=== PATIENT | female | born 1940 | race Caucasian/White ===

== ENCOUNTER 2020-11-22 01:59 | Inpatient (IN) | payer MEDICARE, OTHER ==
[~2020-11-22] VITALS: Ht 160 cm; Wt 78.0 kg
[2020-11-22] MEDS ORDERED: ELIQUIS5 MG PO (02:33)
[2020-11-22] MEDS ORDERED: ATOR20 PO (02:34)
[2020-11-22] MEDS ORDERED: BENZ100A PO (02:34)
[2020-11-22] MEDS ORDERED: Voltaren100 GM TOP (02:41)
[2020-11-22] MEDS ORDERED: DOCU100 PO (02:42)
[2020-11-22] MEDS ORDERED: FERROUS GLUCON324 M2 PO (02:43)
[2020-11-22] MEDS ORDERED: GABA300 PO (02:44)
[2020-11-22] MEDS ORDERED: FOLI1 PO (02:44)
[2020-11-22] MEDS ORDERED: LOSA25 PO (02:49)
[2020-11-22] MEDS ORDERED: NITR.4SL SL (02:49)
[2020-11-22] MEDS ORDERED: ONDA4ODT MM (02:50)
[2020-11-22 03:38] LABS: PCO2 Arterial 60.3 mmHg (35-45); PO2 Arterial 78.2 mmHg (80-100); pH Blood Arterial 7.31 (7.35-7.45)
[2020-11-22 05:36] LABS: Hematocrit 25.5 % (33.0-51.0); Hemoglobin 7.3 g/dL (11.5-16.0); Mean Corpuscular HGB 25.3 pg (26.0-34.0); Mean Corpuscular HGB Conc 28.6 g/dL (31.5-36.5); Mean Corpuscular Volume 88 fL (80-100); Mean Platelet Volume 9.2 fL (9.1-12.4); Platelet Count 483 K/mm3 (150-400); RDW Coefficient Variation 17.5 % (11.7-14.2); RDW Standard Deviation 56.8 fL (35.1-46.3); Red Blood Cell Count 2.89 M/mm3 (3.80-5.20); White Blood Cell Count 12.57 K/mm3 (4.00-11.30)
[2020-11-22 05:55] LABS: Bun/Creatinine Ratio 6.6 (12.0-20.0); Calcium, Blood 8.2 mg/dL (8.5-10.1); Creatinine, Blood 3.18 mg/dL (0.40-1.00); Potassium, Blood 4.3 mmol/L (3.5-5.5)
--- NOTE | 2020-11-22 06:01 | NUR ---
ADMIT NOTE THE PT ARRIVED TO PCU FROM ED VIA ED STRETCHER AT APPROX 0430. THE PT WAS SLID FROM ED STRETCHER TO PCU BED BY 4 STAFF. PT NOT ALERT, SOMULENT. RESPONDS TO STERNAL RUB WITH MOANING, WIGGLES TOES OCCASIONALLY. SP02>90% ON BIPAP. RT IN ROOM TO ADJUST SETTINGS. TELEMETRY READS SR, HR 60'S. PT HAS DIALYSIS PORT ON RIGHT UPPER CHEST WALL. LEFT ARM FISTULA, BP ON R ARM ONLY. SCATTERED BRUISING T/O. ABX INFUSING PER EMAR. CALL LIGHT IN REACH.
--- NOTE | 2020-11-22 08:58 | NUR ---
UPDATE CALLED IN TO ROOM FOR PT COMPLAINT OF CHEST PAIN THAT FELT LIKE TIGHTNESS IN THE CENTER OF CHEST. PT REQUESTING NITRO. EKG RECRORDED. SEE VITAL SIGNS. PT REPORTS PAIN 7/10. ONE NITRO GIVEN AND PT RATES CHEST PAIN AT 4/10 AFTER 3 MINUTES. SECOND NITRO GIVEN AND PT STATES PAIN IS NOW 2/10. PT REPORTS THE TIGHTNESS IN HER CHEST IS GONE. PT BREATHING EVEN AND UNLABORED AT THIS TIME. PLAN FOR DIALYSIS THIS AM.
--- NOTE | 2020-11-22 09:15 | NUR ---
DR. CRESPO UPDATED ON PT CONDITION AND NEW ORDERS PROVIDED.
--- NOTE | 2020-11-22 12:23 | NUR ---
UPDATE PT COMPLAINS OF TIGHTNESS IN THE CHEST /. ONE NITRO GIVEN AND MINUTES AFTER PT REPORTS CHEST PAIN NOW /. VS STABLE SEE CHART. WILL CONTINUE TO MONITOR CLOSELY.
--- NOTE | 2020-11-22 13:08 | NUR ---
UPDATE PT COMPLAINS OF CHEST PAIN AT 1259 7/10. BP TAKEN, ONE NITRO GIVEN. 3 MIN LATER PATIENT REPORTED RELIEF RATING PAIN 2/10. AT 1308 PT REPORTS NO PAIN. VITAL SIGNS STABLE. WILL CONTINUE TO MONITOR.
--- NOTE | 2020-11-22 13:50 | NUR ---
UPDATE PT COMPLAINS OF 6/[address] CHEST PAIN[address] BP LOW. [address] CRESPO NOTIFIED AND WAITING FOR NEW ORDERS.
--- NOTE | 2020-11-22 15:29 | NUR ---
Echocardiogram completed.
--- NOTE | 2020-11-22 19:12 | NUR ---
SHIFT SUMMARY: PATIENT IS ALERT AND ORIENTED. CAME OFF BIPAP THIS AM AND HAS BEEN ON 3L O2 VIA NASAL CANNULA SATING 93-94%. ON TELE, SHOWING SINUS RHYTHM WITH HR 80-90'S. VITAL SIGNS STABLE WITH SOME ELEVATED BLOOD PRESSURES. DIALYSIS THIS AM. SEE PREVIOUS NOTES FOR UPDATES ON CHEST PAIN. SMALL BUSINESS DIRECTOR TO SEE PATIENT TODAY WITH CHANGES IN MEDS SEE ORDERS/EMAR. PATIENT RESTING IN BED COMFORTABLY WITH NO COMPLAINTS OF PAIN. LAST EPISODE OF CHEST PAIN BEGAN AROUND 1400, NEW ORDERS WHERE PLACED AND CHEST PAIN RESOLVED. WILL CONTINUE TO MONITOR AND REPORT OFF.
[2020-11-23 04:37] LABS: Hematocrit 25.1 % (33.0-51.0); Hemoglobin 7.2 g/dL (11.5-16.0); Mean Corpuscular HGB 25.2 pg (26.0-34.0); Mean Corpuscular HGB Conc 28.7 g/dL (31.5-36.5); Mean Corpuscular Volume 88 fL (80-100); Mean Platelet Volume 9.7 fL (9.1-12.4); Platelet Count 529 K/mm3 (150-400); RDW Coefficient Variation 17.7 % (11.7-14.2); RDW Standard Deviation 56.5 fL (35.1-46.3); Red Blood Cell Count 2.86 M/mm3 (3.80-5.20); White Blood Cell Count 11.55 K/mm3 (4.00-11.30)
[2020-11-23 04:53] LABS: International Normalized Ratio 1.1; Prothrombin Time Results 11.7 Sec (9.7-11.5)
[2020-11-23 04:54] LABS: Anion Gap 6 mmol/L (6-16); Blood Urea Nitrogen 23 mg/dL (8-24); Bun/Creatinine Ratio 7.1 (12.0-20.0); CO2, Blood 34 mmol/L (21-32); Calcium, Blood 8.6 mg/dL (8.5-10.1); Chloride, Blood 100 mmol/L (98-108); Creatinine, Blood 3.26 mg/dL (0.40-1.00); Glomerular Filtration Rate 15 (60-); Glucose, Blood 85 mg/dL (70-99); Magnesium, Blood 2.1 mg/dL (1.6-2.4); Phosphorus, Blood 3.2 mg/dL (2.5-4.9); Potassium, Blood 3.4 mmol/L (3.5-5.5); Sodium, Blood 140 mmol/L (136-145)
[2020-11-23 05:12] LABS: PCO2 Arterial 52.8 mmHg (35-45); PO2 Arterial 69.6 mmHg (80-100); pH Blood Arterial 7.43 (7.35-7.45)
--- NOTE | 2020-11-23 05:43 | NUR ---
SHIFT SUMMARY NO ACUTE CHANGES THIS SHIFT. PT A&OX4. SP02>92% ON 3L NC. PT DID WEAR CPAP WHILE SLEEPING. TELEMETRY READ SR, HR 80'S. PT DENIED CP/PRESSURE T/O SHIFT. PT UP TO BSC X2 THIS SHIFT. EKG DONE THIS AM, SEE STRIP IN CHART. PT NPO SINCE MIDNIGHT FOR POSSIBLE PROCEDURE THIS MORNING. CALL LIGHT IN REACH. WILL GIVE REPORT TO ONCOMING SHIFT.
--- NOTE | 2020-11-23 06:30 | NUR ---
PT UPDATE MD DURANT IN PT'S ROOM THIS MORNING. MD DURANT WITH ORDERS FOR DIALYSIS TODAY FOR PT WELL 10MEQ PO POTASSIUM.
--- NOTE | 2020-11-23 09:29 | NUR ---
CALLED AND VERIFIED WITH DR DENTON THIS MORNING ABOUT POSS ANGIO TODAY, PER DR DENTON NO ANGIO PROCEDURE TODAY. HEPARIN GTT STARTED AT 09:15AM. DIALYSIS SCHEDULED BEFORE NOON. WILL MEDICALLY MANAGED AT THIS POINT. PT IN BED RESTING DENIES ANY CHEST PAIN/PRESURE. ATTEMPTING TO GET 2ND PERIPHERAL IV LINE FOR IV ABO. VITALS STABLE. PT CONTINUES ON 2L OF SATS ABOVE 92%. AFEBRILE. WILL MONITOR PT FOR ANY ACUTE CHANGE.
--- NOTE | 2020-11-23 13:15 | NUR ---
UPDATE PT RECIEVEING DIALYSIS, TELE SHOWING A BRIEF PERIOD OF SINUS SOLOMON DROPPING INTO THE 40'S. PATIENT NOW SINUS RHYTHM IN THE 70'S. RESTING COMFORTABLY WITH CALL LIGHT IN REACH. WILL CONTINUE TO MONITOR.
--- NOTE | 2020-11-23 18:29 | NUR ---
SHIFT SUMMARY: PT IS ALERT AND ORIENTED X4, IN GOOD SPIRITS AND COOPERATING WITH ALL CARES. DIALYSIS TODAY IN ROOM. VITAL SIGNS STABLE. ON 3 L OF O2 VIA NASAL CANNULA, SATING ABOVE 94%. NO COMPLAINTS OF CHEST PAIN OR SHORTNESS OF BREATH. ON TELE SHOWING SINUS RHYTHM WITH 1ST DEGREE BLOCK. HR IN THE 80-90'S. IV ROCHEPIN AND HEPARIN INFUSED. UP TO BEDSIDE COMMODE WITH 1 PERSON ASSIST. ON THE PHONE WITH FAMILY THROUGHOUT THE DAY. STATUS CHANGE TO MEDICAL WITH TELE. REPOSITIONING NEEDED, PT REFUSED PILLOWS TO FLOAT HIPS. NO ACUTE CHANGES. PT REQUESTED - WHEN SHE DOES GET DISCHARGED THAT HER SON BE NOTIFIED IN ADVANCE THEY LIVE IN [place]. WILL CONTINUE TO MONITOR AND REPORT OFF.
[2020-11-24 06:15] LABS: Hematocrit 27.1 % (33.0-51.0); Hemoglobin 7.8 g/dL (11.5-16.0)
[2020-11-24 06:31] LABS: Albumin, Blood 2.1 g/dL (3.4-5.0); Anion Gap 5 mmol/L (6-16); Blood Urea Nitrogen 21 mg/dL (8-24); Bun/Creatinine Ratio 7.3 (12.0-20.0); CO2, Blood 32 mmol/L (21-32); Calcium, Blood 8.6 mg/dL (8.5-10.1); Chloride, Blood 104 mmol/L (98-108); Creatinine, Blood 2.89 mg/dL (0.40-1.00); Glomerular Filtration Rate 17 (60-); Glucose, Blood 94 mg/dL (70-99); Phosphorus, Blood 2.7 mg/dL (2.5-4.9); Sodium, Blood 141 mmol/L (136-145)
--- NOTE | 2020-11-24 07:35 | NUR ---
ASSUMED CARE: PT RESTING QUIETLY, WATCHING TV AT THIS TIME. HEPARIN GTT VERIFIED WITH NIGHT RN. NO ACUTE NEEDS OR CONCERNS. NSR ON TELE
--- NOTE | 2020-11-24 07:44 | NUR ---
SHIFT SUMMARY PATIENT PLEASENT AND COOPERATIVE THROUGHOUT THE NIGHT. PATIENT APPEARED TO SLEEP WELL ON AND OFF THROUGHOUT THE NIGHT. PATIENT USED THE BIPAP WHEN ASLEEP. PATIENT ON 3L O2 WHEN AWAKE. PATIENT REPORTED FEELING MORE SHORT OF BREATH THIS MORNING AND REQUESTED A DOSE OF IV DIURETICS. DR DURANT NOTIFIED OF PATIENT'S REQUEST WHEN HE CAME BY AT APPROX 0600. DR DURANT STATED THAT HE THINKS GETTING DIALYSIS TODAY WOULD BE BEST FOR PATIENT'S SHORTNESS OF BREATH. PATIENT CURRENTLY SITTING UP IN BED WATCHING TV, RESPIRATIONS EVEN AND UNLABORED AT THIS TIME. REPORT GIVEN TO ONCOMING RN.
[2020-11-24] MEDS ORDERED: ASPI81CH PO (12:03)
[2020-11-24] MEDS ORDERED: LIDOCAINE1 EAC1 TOP (12:04)
[2020-11-24] MEDS ORDERED: METO50ER PO (12:05)
[2020-11-24] MEDS ORDERED: POTA10T PO (12:07)
[2020-11-24] MEDS ORDERED: TORSE20 PO (12:08)
[2020-11-24] MEDS ORDERED: ISOSORBIDE MONO60 MG PO (12:09)
[2020-11-24] MEDS ORDERED: CEFU500T30 PO (13:12)
[2020-11-24] MEDS ORDERED: VISBIOME PO (13:14)
--- NOTE | 2020-11-24 13:58 | NUR ---
DISCHARGE: PT'S IV'S DC'D. PRO IV SPURTED BLOOD UPON REMOVAL. HELD PRESSURE AND WRAPPED TIGHT. EVALUATED FOR FURTHER BLEEDING. COORDINATOR AWARE THAT THIS OCCURRED. IV TO RIGHT HAND DC'D WNL. INSTRUCTIONS GIVEN TO PT AND SON. INSTRUCTED THAT LAB RESULT FOR UA WAS PRELIMINARY AND DR CRESPO WAS AWARE AND INSTRUCTS TO FOLLOW UP WITH PCP IN NEXT FEW DAYS TO ENSURE THAT PT IS ON CORRECT ABX. PT AGREEABLE TO THIS. CURRENT ABX ORDERED. PT DENIED FURTHER NEEDS OR CONCERNS. ESCORTED OUT VIA WHEELCHAIR BY STAFF WITH HOME O2 IN PLACE.
== END 2020-11-24 14:12 | disposition home or self-care (01) | DRG 291 ==
LOC: ER 01:59 → PCU 04:55
PROVIDERS: Emergency Medicine; Internal Medicine; Internal Medicine Cardiovascular Disease; Internal Medicine Nephrology; ADMIT Internal Medicine
PROC: 5A09357 Assistance with Respiratory Ventilation, Less than 24 Consecutive Hours, Continuous Positive Airway Pressure (ICD-10-PCS; principal; 2020-11-22)
PROC: 5A1D70Z Performance of Urinary Filtration, Intermittent, Less than 6 Hours Per Day (ICD-10-PCS; 2020-11-22)
PROC: 5A1D70Z Performance of Urinary Filtration, Intermittent, Less than 6 Hours Per Day (ICD-10-PCS; 2020-11-23)
PROC: 5A1D70Z Performance of Urinary Filtration, Intermittent, Less than 6 Hours Per Day (ICD-10-PCS; 2020-11-24)
DX: I13.2 Hypertensive heart and chronic kidney disease with heart failure and with stage 5 chronic kidney disease, or end stage renal disease (principal); I50.33 Acute on chronic diastolic (congestive) heart failure; G92 Toxic encephalopathy; J96.21 Acute and chronic respiratory failure with hypoxia; J96.22 Acute and chronic respiratory failure with hypercapnia; N18.6 End stage renal disease; N39.0 Urinary tract infection, site not specified; E87.4 Mixed disorder of acid-base balance; I48.0 Paroxysmal atrial fibrillation; I27.20 Pulmonary hypertension, unspecified; Z66 Do not resuscitate; D63.1 Anemia in chronic kidney disease; I35.0 Nonrheumatic aortic (valve) stenosis; I20.0 Unstable angina; J44.9 Chronic obstructive pulmonary disease, unspecified; G47.33 Obstructive sleep apnea (adult) (pediatric); E87.6 Hypokalemia; E88.09 Other disorders of plasma-protein metabolism, not elsewhere classified; I25.10 Atherosclerotic heart disease of native coronary artery without angina pectoris; E78.5 Hyperlipidemia, unspecified; Z99.2 Dependence on renal dialysis; Z79.82 Long term (current) use of aspirin; Z87.891 Personal history of nicotine dependence
CPT/HCPCS: 36415; 36600; 71046; 80048; 80069; 82803; 83735; 83880; 84145; 84484; 85014; 85018; 85027; 85610; 85730; 87040; 87077; 87086; 87186; 93005; 93010; 93306; 94660; 94762; 99285-25; A9270; J0696; J0881; J1644; J7050